=== PATIENT | female | born 1990 | race Caucasian/White ===

== ENCOUNTER 2022-03-17 16:46 | Outpatient (CLI) | payer BC, SELFPAY ==
--- OUTSIDE RECORDS SUMMARY | 2022-03-17 16:48 | XMS_ITS | Clinical Summary ---
:1990 Author Organization [facility] [place] [address] Care Team Providers Name Role Phone Ghanshyam Almonte MD Primary Care Provider Allergies Active Allergy Reactions Severity Noted Date Comments Cefprozil Rash Low 11/09/2011 Medications Medication Sig Dispensed Refills Start Date End Date Status loratadine Take 10 mg by mouth 0 Active (CLARITIN) 10 mg once daily. tabletIndications: Indications: allergic rhinitis ALLERGIC RHINITIS HYDROcodone-acetami Take 1-2 tablets by 20 tablet 0 08/14/2012 Active nophen, 5-325 mg, mouth every 4 hours (NORCO) per tablet if needed for Pain (For moderate to severe pain not relieved with ibuprofen or acetaminophen). acetaminophen Take 1-2 tablets by 100 tablet 0 08/14/2012 Active (TYLENOL) 325 mg mouth every 4 hours tablet if needed for Other (Specify) (mild pain). Max acetaminophen dose: 4000mg in 24 hrs. SERTRALINE HCL Take 150 mg by 0 Active (ZOLOFT ORAL) mouth. VIT/IRON Take 1 Tab by mouth 0 Active FUM/FOLIC AC at bedtime. ( 1 + 1 ORAL) CALCIUM CARBONATE Take 500 Tabs by 0 Active (TUMS 500 ORAL) mouth 4 times daily if needed. glycerin-witch Apply 1 Applicator 100 Each 0 08/13/2017 Active demond (TUCKS) topically to padIndications: affected area(s) care every hour while following vaginal awake as needed. delivery lanolin (LANSINOH) Apply peasized 1 Tube 11 08/13/2017 Active ointmentIndications amount to entire : care nipple area after following vaginal each feeding and delivery leave on, no need to wash off before . ibuprofen (ADVIL; Take 1 tablet by 30 tablet 0 08/13/2017 Active MOTRIN) 600 mg mouth every 6 tabletIndications: hours. Maximum of care 3200 mg in 24 following vaginal hours. delivery dibucaine 1% Apply topically to 1 Tube 0 08/13/2017 Active topical affected area(s) (NUPERCAINAL) 1 % each time if ointmentIndications needed. : care following vaginal delivery docusate (COLACE) Take 1 capsule by 100 capsule 0 08/13/2017 Active 100 mg mouth once daily. capsuleIndications: care following vaginal delivery Breast Pump - For home use. 1 unit 0 08/13/2017 A ctive PurchaseIndications Gestation age at : care delivery: 37 weeks. following vaginal Reason for need: delivery . Length of need: 1 year Active Problems Problem Noted Date Preeclampsia, third trimester 08/10/2017 Normal 03/16/2017 Overview: Overview: ( 'laya' by Suzy faulkner) Daily 81 mg aspirin Resolved Problems Problem Noted Date Resolved Date Hypertension in , preeclampsia, delivered 3 08/10/2017 Mild preeclampsia 08/12/2012 08/10/2017 Immunizations Name Administration Dates Next Due Influenza Virus, Unspecified 04/04/2015, 01/22/2014, 012 Tdap 07/04/2012 Social History Tobacco Use Types Packs/Day Years Used Date Former Smoker Quit: 04/24/20 10 Alcohol Use Standard Drinks/Week Comments No 0 (1 standard drink = 0.6 oz pure alcoho l) Sex Assigned at Date Recorded Not on file Obstetrics History Para Term AB IAB SAB Ectopic Multiple Living Live Births 2 2 2 2 2 Date Outcome GA Total Labor/2nd/3rd Weight Sex Delivery Anes PTL Cristine A 1 A5 Name Clin Labor 08/12 Term 39w 3.18 kg M Vag Mel 7 7 DEML, /2012 0d (7 lb ng BB(ME 0.2 oz) GHAN) Delivery Location: [facility] 08/11/2017 Term 37w0d 3.68 kg (8 M Vag Epidural N Living 4 6 DEML,BB Gaunt lb 2 oz) (EVAN N) Complications: None Delivery Location: [facility] ( [facility]) Last Filed Vital Signs Vital Sign Reading Time Taken Comments Blood Pressure 129/62 09/11/2021 11:00 PM CDT Pulse 91 09/11/2021 11:00 PM CDT Temperature 36.7 ??C (98.1 ??F) 09/11/2021 10:14 PM CDT Respiratory Rate 20 09/11/2021 10:14 PM CDT Oxygen Saturation 99% 09/11/2021 11:00 PM CDT Inhaled Oxygen Concentration - - Weight 116.4 kg (256 lb 11.2 oz) 09/11/2021 10:14 PM CDT Height 170.2 cm (5' 7) 09/11/2021 10:14 PM CDT Body Mass Index 40.2 09/11/2021 10:14 PM CDT Plan of Treatment Not on file Results Not on filefrom Last 3 Months Insurance Payer Benefit Plan / Subscriber ID Effective Dates Phone Addre ss Type Group BLUE CROSS BL[employer] OF [id number] 2016-Present [address] [place] [address] Advance Directives Latest Code Status on File Code Status Date Activated Date Inactivated Comments Full Code 08/11/2017 6:50 PM 08/13/2017 8:36 PM Code Status Discussion: Discussed Full Code 08/11/2017 4:58 PM 08/11/2017 6:50 PM Full Code 08/10/2017 5:15 PM 08/10/2017 8:49 PM Code Status Discussion: Discussed Full Code 08/11/2012 6:31 PM 08/14/2012 3:38 PM Full Code 08/11/2012 2:10 PM 08/11/2012 6:31 PM Care Teams Voice Professor Relationship Specialty Start Date End Date Ghanshyam Almonte MD PCP - General Family Practice 09/11/21 [id number] [place] [address]
--- NOTE | 2022-03-17 17:00 | CRLHL7_ITS ---
For Patients: As a result of the Century Cures Act, medical imaging exams and procedure reports are released immediately into your electronic medical record. You may view this report before your referring provider. If you have questions, please contact your health care provider. Indication: NECK MASS Technique: Grayscale and color Doppler ultrasound of the neck performed bilaterally in the areas of concern. Comparison: None Findings: Within the right lateral neck, there is a normal lymph node measuring 1.2 cm with a central fatty hilum and normal internal vascularity. A similar normal lymph node is present within the left side of the neck measuring 8 millimeters. Impression: Normal bilateral lymph nodes corresponding to the palpable areas of concern. Dictated by Mendel Parker MD @ 03/18/2022 8:54:18 AM (Electronically Signed)
== END 2022-03-17 16:47 | disposition home or self-care (01) ==
LOC: US 16:47
PROVIDERS: PCP Family Medicine; Visit Provider Family Medicine
DX: R22.1 Localized swelling, mass and lump, neck (principal)
CPT/HCPCS: 76536

== ENCOUNTER 2022-07-09 11:24 | Outpatient (CLI) | payer BC, SELFPAY | END 2022-07-09 11:25 | disposition home or self-care (01) | PROVIDERS: PCP Family Medicine; Visit Provider Family Medicine | DX: N92.0 Excessive and frequent menstruation with regular cycle (principal); F90.9 Attention-deficit hyperactivity disorder, unspecified type; L03.019 Cellulitis of unspecified finger | CPT/HCPCS: 84443; 84460 ==

== ENCOUNTER 2022-12-02 07:50 | Outpatient (CLI) | payer BC, SELFPAY | END 2022-12-02 07:51 | disposition home or self-care (01) | LOC: NFLDREF 12-03 10:58 | PROVIDERS: PCP Family Medicine; Referring Provider Family Medicine; Visit Provider Family Medicine | DX: Z00.00 Encounter for general adult medical examination without abnormal findings (principal); R53.83 Other fatigue; F41.8 Other specified anxiety disorders; N92.0 Excessive and frequent menstruation with regular cycle; Z13.6 Encounter for screening for cardiovascular disorders | CPT/HCPCS: 80053; 80061; 82671; 84144; 84443 ==

== ENCOUNTER 2022-12-07 13:50 | Outpatient (CLI) | payer BC, SELFPAY | END 2022-12-07 13:51 | disposition home or self-care (01) | LOC: RAD 13:51 | PROVIDERS: PCP Family Medicine; Visit Provider Family Medicine | DX: R01.1 Cardiac murmur, unspecified (principal) | CPT/HCPCS: 93306 ==

== ENCOUNTER 2022-12-29 16:09 | Outpatient (CLI) | payer BC, SELFPAY | END 2022-12-29 16:10 | disposition home or self-care (01) | LOC: LKVREF 16:12 | PROVIDERS: PCP Family Medicine; Visit Provider Family Medicine | DX: M79.675 Pain in left toe(s) (principal); M79.674 Pain in right toe(s) | CPT/HCPCS: 84550 ==

== ENCOUNTER 2023-08-04 08:50 | Outpatient (CLI) | payer BC, SELFPAY ==
--- OUTSIDE RECORDS SUMMARY | 2023-08-24 09:38 | XMS_ITS | Clinical Summary ---
Author Name Unknown Organization [employer] [facility] [employer] [facility] [facility] Address [place], [place] [address] Care Team Providers Care Manager Administrative Services Name Role Phone Ghanshyam Almonte MD Primary Care Provider [phone] Allergies Active Allergy Reactions Criticality Noted Date Comments Cefprozil Rash Low 11/09/2011 Medications Medication Sig Dispensed Refills Start Date End Date Status loratadine (CLARITIN) 10 mg tabletIndications :allergic rhinitis Take 10 mg by mouth once daily. Indications: ALLERGIC RHINITIS Active HYDROcodone-aceta minophen, 5-325 mg, (NORCO) per tablet Take 1-2 tablets by mouth every 4 hours if needed for Pain (For moderate to severe pain not relieved with ibuprofen or acetaminophen). 20 tablet 0 08/14/2012 Active acetaminophen (TYLENOL) 325 mg tablet Take 1-2 tablets by mouth every 4 hours if needed for Other (Specify) (mild pain). Max acetaminophen dose: 4000mg in 24 hrs. 100 tablet 0 08/14/2012 Active SERTRALINE HCL (ZOLOFT ORAL) Take 150 mg by mouth. Active VIT/IRON FUM/FOLIC AC ( 1 + 1 ORAL) Take 1 Tab by mouth at bedtime. Active CALCIUM CARBONATE (TUMS 500 ORAL) Take 500 Tabs by mouth 4 times daily if needed. Active glycerin-witch demond (TUCKS) padIndications:Po stpartum care following vaginal delivery Apply 1 Applicator topically to affected area(s) every hour while awake as needed. 100 Each 08/13/2017 Active lanolin (LANSINOH) ointmentIndicatio ns: care following vaginal delivery Apply peasized amount to entire nipple area after each feeding and leave on, no need to wash off before . 1 Tube 11 08/13/2017 Active ibuprofen (ADVIL; MOTRIN) 600 mg tabletIndications : care following vaginal delivery Take 1 tablet by mouth every 6 hours. Maximum of 3200 mg in 24 hours. 30 tablet 08/13/2017 Active dibucaine 1% topical (NUPERCAINAL) 1 % ointmentIndicatio ns: care following vaginal delivery Apply topically to affected area(s) each time if needed. 1 Tube 08/13/2017 Active docusate (COLACE) 100 mg capsuleIndication s: care following vaginal delivery Take 1 capsule by mouth once daily. 100 capsule 08/13/2017 Active Breast Pump - PurchaseIndicatio ns: care following vaginal delivery For home use. Gestation age at delivery: 37 weeks. Reason for need: . Length of need: 1 year 1 unit 08/13/2017 Active Active Problems Problem Noted Date Diagnosed Date Preeclampsia, third trimester 08/10/2017 Normal 03/16/2017 Overview: Overview: ( 'laya' by Suzy marcos) Daily 81 mg aspirin Resolved Problems Problem Noted Date Diagnosed Date Resolved Date Hypertension in , p reeclampsia, delivered 08/12/2012 08/10/2017 Mild preeclampsia 08/12/2012 08/10/2017 Immunizations Name Administration Dates Next Due Influenza Virus, Unspecified 04/04/2015,01/23/20 14,01/28/2012 Tdap 07/04/2012 Social History Tobacco Use Types Packs/Day Years Used Date Smoking Tobacco: Former Cigarettes Q uit: 04/24/2010 Alcohol Use Standard Drinks/Week Comments No 0 (1 standard drink = 0.6 oz pur e alcohol) Sex and Gender Information Value Date Recorded Sex Assigned at Not on file Gender Identity Not on file Sexual Orientation Not on file Obstetrics History Para Term AB IAB SAB Ectopic Multiple Livin g Live Births 2 2 2 2 2 Date Outcome GA Total Labor Labor/2nd/3rd Weight Sex Delivery Anes PTL Cristine A1 A5 Name Cl in 08/12 Term 39w 0d 3.18 kg (7 lb 0.2 oz) M Vag Mel ng 7 7 DEML, BB(ME GHAN) Delivery Location:[facility] 08/11 Term 37w 0d 3.68 kg (8 lb 2 oz) M Vag Epidu ral N Mel ng 4 6 DEML, BB ([facility] AN) Gaunt Complications:None Delivery Location:[facility]) Last Filed Vital Signs Vital Sign Reading Time Taken Comments Blood Pressure 129/62 09/11/2021 11:00 PM CDT Pulse 91 09/11/2021 11:00 PM CDT Temperature 36.7 ??C (98.1 ??F) 09/11/2021 1 0:14 PM CDT Respiratory Rate 20 09/11/2021 10:1 4 PM CDT Oxygen Saturation 99% 09/11/2021 11: 00 PM CDT Inhaled Oxygen Concentration - - Weight 116.4 kg (256 lb 11.2 oz) 2021 10:14 PM CDT Height 170.2 cm (5' 7) 09/11/2021 10:1 4 PM CDT Body Mass Index 40.2 09/11/2021 10:14 PM CDT Plan of Treatment Not on file Advance Directives * Full Code (Latest Code Status on File) Date Activated Date Inactivated Comments 08/11/2017 6:50 PM 08/13/2017 8:36 PM Question Answer Comments Code Status Discussion: Discussed * Full Code Date Activated Date Inactivated Comments 08/11/2017 4:58 PM 08/11/2017 6:50 PM * Full Code Date Activated Date Inactivated Comments 08/10/2017 5:15 PM 08/10/2017 8:49 PM Question Answer Comments Code Status Discussion: Discussed * Full Code Date Activated Date Inactivated Comments 08/11/2012 6:31 PM 08/14/2012 3:38 PM * Full Code Date Activated Date Inactivated Comments 08/11/2012 2:10 PM 08/11/2012 6:31 PM Care Teams Manager Administrative Services Relationship Specialty Start Date End Date Ghanshyam Almonte MD [address] [place] [address] PCP - General Family Practice 09/11/21
== END 2023-08-04 08:51 | disposition home or self-care (01) ==
LOC: NFLDREF 08-24 09:36
PROVIDERS: PCP Family Medicine; Referring Provider Family Medicine; Visit Provider Family Medicine
DX: E78.6 Lipoprotein deficiency (principal)
CPT/HCPCS: 80061

== ENCOUNTER 2023-11-30 09:03 | Outpatient (CLI) | payer BC, SELFPAY ==
--- OUTSIDE RECORDS SUMMARY | 2023-11-30 09:06 | XMS_ITS | Clinical Summary ---
Author Organization [facility] Address [place], [place] [address] Care Team Providers Care Sociology Instructor Name Role Phone Ghanshyam Almonte MD Primary Care Provider [phone] Allergies Active Allergy Reactions Criticality Noted Date [...] Outcome GA Total Labor Labor/2nd/3rd Weight Sex Type Anes PTL Cristine A1 A5 Name Clin 2012 Term 39w 0d 3.18 kg (7 lb 0.2 oz) M Vag Livin g 7 7 DEML, BB(ME GHAN) Delivery Location:[facility] 2017 Term 37w 0d 3.68 kg (8 lb 2 oz) M Vag Epidur al N Livin g 4 6 DEML, BB ([facility]) Gaunt Complications:None Delivery Location:[facility] ([facility]) Last Filed Vital [...] 2:10 PM 08/11/2012 6:31 PM Care Teams Sociology Instructor Relationship Specialty Start Date End Date Ghanshyam Almonte MD [address] [place] [address] PCP - General Family Practice 09/11/21
== END 2023-11-30 09:04 | disposition home or self-care (01) ==
PROVIDERS: PCP Family Medicine; Visit Provider Family Medicine
DX: Z00.00 Encounter for general adult medical examination without abnormal findings (principal); R53.83 Other fatigue; R00.2 Palpitations; F41.8 Other specified anxiety disorders
CPT/HCPCS: 80053; 80061; 82306

== ENCOUNTER 2024-01-26 19:40 | Outpatient (CLI) | payer BC, SELFPAY ==
--- OUTSIDE RECORDS SUMMARY | 2024-01-26 19:42 | XMS_ITS | Clinical Summary ---
Author Organization [facility] [facility] Address [place], [place] [address] Care Team Providers Care Route Service Representative Name Role Phone Ghanshyam Almonte MD Primary Care Provider [phone] Allergies Active Allergy Reactions Criticality Noted Date [...] Date Preeclampsia, third trimester 08/10/2017 Normal 03/16/2017 Overview (08/10/2017): Overview: ( 'laya' by Suzy marcos) Daily 81 mg aspirin Resolved Problems Problem Noted Date Diagnosed Date Resolved Date Hypertension in , p reeclampsia, delivered 08/12/2012 08/10/2017 Mild preeclampsia 08/12/2012 08/10/2017 Encounters Date Type Department Care Team Description 11/30/2023 Orders Only [facility] [address] [place] [address] Ghanshyam Almonte MD 1 scan: (1-Ord) ZIO REPORT 11/30/2023 Lab Requisition [facility] [phone] Ghanshyam Almonte MD from Last 3 Months Immunizations Name Administration Dates Next Due Influenza [...] M Vag Livin g 7 7 DEML, BB([place] GHAN) Delivery Location[facility] 2017 Term 37w 0d 3.68 kg (8 lb 2 oz) M Vag Epidur al N Livin g 4 6 DEML, BB ([facility]) Gaunt Complications:None Delivery Location:[facility] ([facility]) Last Filed Vital Signs Vital [...] CDT Plan of Treatment Not on file Procedures Procedure Name Priority Date/Time Associated Diagnosis Comments EXTENDED HOLTER Routine 12/14/2023 Palpitations LAB TRACKING EVENT Routine 11/30/2023 9: 50 AM CDT BUDGET SPECIALIST THIN PREP PAP SCREEN IMAGED Routine 11/30/2023 9:50 AM CDT HPV HIGH RISK Routine 11/30/2023 9:50 AM CDT from Last 3 Months Results * EXTENDED HOLTER (12/14/2023) Gahnshyam Almonte MD CARDIAC SERVICES ORD * LAB TRACKING EVENT (11/30/2023 9:50 AM CDT) Other (Other) Client Collect / Unknown 11/30/2023 9:50 AM CDT 11/30/2023 3:32 PM CDT Ghanshyam Almonte MD LAB BILL ONLY [facility] [address] [place] [address], * BUDGET SPECIALIST THIN PREP PAP SCREEN IMAGED (11/30/2023 9:50 AM CDT) Case Report Gynecologic Cytology Report ? Case: [id number] ? Authorizing Provider: ??Ghanshyam Almonte MD ?Collected: ? 11/30/2023 0950 ? Ordering Location: ? [facility] ?Received: ?12/01/2023 0903 ? First Screen: ?Chary Pulliam ? Rescreen: ?Whitley Morales ? Specimen: ?BUDGET SPECIALIST ThinPrep Vial Screening, Cervical/Vaginal ? 12/09/2023 9:40 AM CDT [facility] INTERPRETATION/ RESULT NEGATIVE FOR INTRAEPITHELIAL LESION OR MALIGNANCY (NIL) (none) 12/09/2023 9:[address] [facility] IMEN ADEQUACY Satisfactory for evaluation Endocervical component present 12/09/2023 9:[address] [facility] HPV REQUEST HPV and PAP 12/09/2023 9:[address] [facility] Abnormal Pap or [place] Bx in last 5 years No 12/09/2023 9:40 AM CDT [facility] [place] Bx Done Today No 12/09/2023 9:[address] [facility] Additional Information 12/09/2023 9:40 AM T [facility] Comment: Interpreted at [facility] Central Laboratory - [address], [place] [address] Automated Review Successful 12/09/2023 9:[address] [facility] Comment:Specimen processed s uccessfully by automated cotton weigher device, ThinPrep Imaging System, [employer] ANCILLARY TESTING BUDGET SPECIALIST HPV Ordered, Please see separate report 12/09/2023 9:[address] [facility] Note The pap test is a screening technique, not a diagnostic procedure. It is used primarily to screen for squamous cancers and precursor lesions. Published studies have shown that it is subject to both false negative and false positive results. The pap test should not be used as the sole means to diagnose or exclude pre-malignant and malignant lesions. 12/09/2023 9:40 AM T [facility] Other (Cervical/Vagina l) 11/30/2023 9:50 AM CDT 12/01/2023 9:03 AM CDT Ghanshyam Almonte MD PATHOLOGY/CYTOLOGY Performing Organization Address [facility] Co de Phone Number [facility] [address] * HPV HIGH RISK (11/30/2023 9:50 AM CDT) TYPE 16 Negative Negative 12/02/2023 11:08 AM CDT [facility] TYPE 18 Negative Negative 12/02/2023 11:08 AM CDT [facility] OTHER HIGH RISK TYPES Negative Negative 12/02/2023 11:08 AM CDT [facility] Other (Cervical/Vagina l) 11/30/2023 9:50 AM CDT 12/01/2023 9:03 AM CDT Narrative [facility] - 12/02/2023 11:08 AM CDT HPV types 16, 18, 31, 33, 35, 39, 45, 51, 52, 56, 58, 59, 66 and 68 DNA were undetectable or below the pre-set threshold. Methodology: Lorna Suzanna 4800 HPV Test Ghanshyam Almonte MD MICROBIOLOGY Performing Organization Address [facility] Co de Phone Number [facility] [address] from Last 3 Months Advance Directives * Full Code (Latest Code [...] 2:10 PM 08/11/2012 6:31 PM Care Teams Route Service Representative Relationship Specialty Start Date End Date Ghanshyam Almonte MD [address], [place] [address] PCP - General Family Practice 09/11/21
--- NOTE | 2024-02-15 12:46 | W.PM.SLEEP ---
Sleep Study Details Details Interpreting Provider: Mariana Date of Sleep Study: 01/26/24 Sleep Study Details: STUDY TYPE:? Home unattended ? BMI:? 37.9 ORDERING PROVIDER:David Peña INDICATION:? Concern about sleep apnea ? SLEEP SUMMARY:? 552.5 minutes monitored RESPIRATORY SUMMARY:? AHI 8.4, left lateral 7.9, supine 4.9, right lateral 13.8 Low oxygen 89 Snoring 50.3% PERIODIC LIMB MOVEMENTS OF SLEEP:? Not recorded CARDIAC:? Range 60-108, mean 76.5 beats per minute IMPRESSION:? Mild obstructive sleep apnea worse in the right lateral position RECOMMENDATION: Treatment options include CPAP dental appliance and weight loss.
== END 2024-01-26 19:41 | disposition home or self-care (01) ==
LOC: SLEEP 19:41
PROVIDERS: PCP Family Medicine; Visit Provider Otolaryngology
DX: G47.33 Obstructive sleep apnea (adult) (pediatric) (principal); R06.83 Snoring
CPT/HCPCS: 95806

== ENCOUNTER 2024-04-04 09:56 | Outpatient (CLI) | payer BC, SELFPAY ==
--- OUTSIDE RECORDS SUMMARY | 2024-04-04 10:06 | XMS_ITS | Clinical Summary ---
Author Organization [employer] [facility] Address [place], [place] [address] Care Team Providers Care Musculoskeletal Physician Name Role Phone Ghanshyam Almonte MD Primary Care Provider [phone] Allergies Active Allergy Reactions Criticality Noted Date Comments Cefprozil Rash Low 11/09/2011 Medications loratadine (CLARITIN) 10 mg tabletIndicati ons:allergic rhinitis Take 10 mg by mouth once daily. Indications: ALLERGIC RHINITIS Active HYDROcodone-ac etaminophen, 5-325 mg, (NORCO) per tablet Take 1-2 tablets by mouth every 4 hours if needed for Pain (For moderate to severe pain not relieved with ibuprofen or acetaminophen). 20 tablet 0 3 Active acetaminophen (TYLENOL) 325 mg tablet Take 1-2 tablets by mouth every 4 hours if needed for Other (Specify) (mild pain). Max acetaminophen dose: 4000mg in 24 hrs. 100 tablet 0 3 Active SERTRALINE HCL (ZOLOFT ORAL) Take 150 mg by mouth. Active VIT/IRON FUM/FOLIC AC ( 1 + 1 ORAL) Take 1 Tab by mouth at bedtime. Active CALCIUM CARBONATE (TUMS 500 ORAL) Take 500 Tabs by mouth 4 times daily if needed. Active glycerin-witch demond (TUCKS) padIndications : care following vaginal delivery Apply 1 Applicator topically to affected area(s) every hour while awake as needed. 100 Each 8 Active lanolin (LANSINOH) ointmentIndica tions:Postpart um care following vaginal delivery Apply peasized amount to entire nipple area after each feeding and leave on, no need to wash off before . 1 Tube 11 8 Active ibuprofen (ADVIL; MOTRIN) 600 mg tabletIndicati ons: care following vaginal delivery Take 1 tablet by mouth every 6 hours. Maximum of 3200 mg in 24 hours. 30 tablet 8 Active dibucaine 1% topical (NUPERCAINAL) 1 % ointmentIndica tions:Postpart um care following vaginal delivery Apply topically to affected area(s) each time if needed. 1 Tube 8 Active docusate (COLACE) 100 mg capsuleIndicat ions:Postpartu m care following vaginal delivery Take 1 capsule by mouth once daily. 100 capsule 8 Active Breast Pump - PurchaseIndica tions:Postpart um care following vaginal delivery For home use. Gestation age at delivery: 37 weeks. Reason for need: . Length of need: 1 year 1 unit 8 Active Active Problems Problem Noted Date Diagnosed [...] drink = 0.6 oz pur e alcohol) Comments No Sex and Gender Information Value Date Recorded Sex Assigned at Not on file Legal Sex Female 6:59 AM DIRECTOR OF ADULT EPILEPSY Gender Identity Not on file Sexual Orientation Not on file Obstetrics History Para Term AB IAB SAB Ectopic Multiple Livin g Live Births 2 2 2 2 2 Date Outcome GA Total Labor Labor/2nd/3rd Weight Sex Type Anes PTL Cristine A1 A5 Name Clin 2012 Term 39w 0d 3.18 kg (7 lb 0.2 oz) M Vag Livin g 7 7 DEML, BB([place] GHAN) Delivery Location:[facility] 2017 Term 37w 0d 3.68 kg (8 lb 2 oz) M Vag Epidur al N Livin g 4 6 DEML, BB ([facility]) Gaunt Complications:None Delivery Location:[facility] ([facility]) Last Filed Vital Signs Vital Sign Reading Time Taken Comments Blood Pressure 129/62 09/11/2021 11:00 PM CDT Pulse 91 09/11/2021 11:00 PM CDT Temperature 36.7 C (98.1 F) 09/11/2021 10:14 PM CDT Respiratory Rate 20 09/11/2021 10:1 4 PM CDT Oxygen Saturation 99% 09/11/2021 11: 00 PM CDT Inhaled Oxygen Concentration - - Weight 116.4 kg (256 lb 11.2 oz) 2021 10:14 PM CDT Height 170.2 cm (5' 7) 09/11/2021 10:1 4 PM CDT Body Mass Index 40.2 09/11/2021 10:14 PM CDT Plan of Treatment Not on file Insurance [facility] Advance Directives * Full Code (Latest Code [...] 2:10 PM 08/11/2012 6:31 PM Care Teams Musculoskeletal Physician Relationship Specialty Start Date End Date Ghanshyam Almonte MD [address] [place] [address] PCP - General Family Practice 09/11/21
== END 2024-04-04 09:57 | disposition home or self-care (01) ==
PROVIDERS: PCP Family Medicine; Visit Provider Family Medicine
DX: R00.2 Palpitations (principal); R25.1 Tremor, unspecified; R42 Dizziness and giddiness; R53.82 Chronic fatigue, unspecified
CPT/HCPCS: 80053; 82728; 84443; 86038; 86618

== ENCOUNTER 2024-05-16 08:07 | Outpatient (CLI) | payer BC, SELFPAY | END 2024-05-16 08:08 | disposition home or self-care (01) | LOC: LKVREF 08:09 | PROVIDERS: PCP Family Medicine; Visit Provider Family Medicine | DX: R42 Dizziness and giddiness (principal) | CPT/HCPCS: 82533 ==

== ENCOUNTER 2024-07-04 08:11 | Outpatient (CLI) | payer BC, SELFPAY | END 2024-07-04 08:12 | disposition home or self-care (01) | PROVIDERS: PCP Family Medicine; Visit Provider Family Medicine | DX: R53.83 Other fatigue (principal); M25.50 Pain in unspecified joint; R42 Dizziness and giddiness; E78.00 Pure hypercholesterolemia, unspecified; F41.8 Other specified anxiety disorders | CPT/HCPCS: 80061; 82728; 86038; 86431 ==

== ENCOUNTER 2024-10-05 08:35 | Outpatient (CLI) | payer BC, SELFPAY | END 2024-10-05 08:36 | disposition home or self-care (01) | LOC: LKVREF 08:38 | PROVIDERS: PCP Family Medicine; Visit Provider Family Medicine | DX: R53.83 Other fatigue (principal); D64.9 Anemia, unspecified; M25.50 Pain in unspecified joint | CPT/HCPCS: 82728 ==

== ENCOUNTER 2025-04-02 07:45 | Outpatient (CLI) | payer BC, SELFPAY | END 2025-04-02 07:46 | disposition home or self-care (01) | LOC: NFLDREF 04-03 08:46 | PROVIDERS: PCP Family Medicine; Referring Provider Family Medicine; Visit Provider Family Medicine | DX: E78.00 Pure hypercholesterolemia, unspecified (principal); K21.9 Gastro-esophageal reflux disease without esophagitis; E55.9 Vitamin D deficiency, unspecified | CPT/HCPCS: 80053; 80061; 82306; 85027 ==